=== PATIENT | female | born 1995 | race Caucasian/White ===

== ENCOUNTER 2017-04-08 11:05 | Emergency (ER) | payer OTHER ==
[2017-04-08 11:15] VITALS: BP 106/60; PULSE 90; TEMP 98.2; BMI 20.5
[2017-04-08] MEDS ORDERED: KETOROLAC TROMETHAMINE 60 MG/2 ML VIAL IM ONE (11:45)
[2017-04-08] MEDS ORDERED: KETOROLAC TROMETHAMINE 60 MG/2 ML VIAL ONE (11:47)
--- NOTE | 2017-04-08 12:39 | PDOC ---
History of Present Illness - General Chief Complaint: Back Pain Stated Complaint: LOWER BACK PAIN Time Seen by Provider: 04/08/17 11:31 History Source: Patient Exam Limitations: No Limitations - History of Present Illness Initial Comments: 04/08/17 12:34 22 yr female with c/o pain to the middle of her back left side for 3 days. denies fever or cough. pain is worse with movement and to touch. pt denies trauma no meds taken [employer]. Severity: mild Associated Symptoms: reports: denies symptoms Past History - Past Medical History Allergies/Adverse Reactions: Allergies Allergy/AdvReac Type Severity Reaction Status Date / Time No Known Allergies Allergy Verified 04/08/17 11:15 Home Medications: Ambulatory Orders Cyclobenzaprine HCl [Flexeril -] 10 mg PO TID PRN #12 tablet 04/08/17 Naproxen [Naprosyn -] 500 mg PO BID PRN #28 tablet 04/08/17 COPD: No Thyroid Disease: No - Suicide/Smoking/Psychosocial Hx Smoking History: Unknown if ever smoked Have you smoked in the past 12 months: No Information on smoking cessation initiated: No Hx Alcohol Use: No Drug/Substance Use Hx: No Substance Use Type: None Review of Systems - Review of Systems Able to Perform ROS?: Yes Is the patient limited Kazakh proficient: No Constitutional: No: Symptoms Reported HEENTM: No: Symptoms Reported Respiratory: No: Symptoms reported Cardiac (ROS): No: Symptoms Reported ABD/GI: No: Symptoms Reported : No: Symptoms Reported Musculoskeletal: Yes: See HPI *Physical Exam - Vital Signs Last Vital Signs Temp Pulse Resp BP Pulse Ox 98.2 F 90 18 106/60 100 04/08/17 11:12 04/08/17 11:12 04/08/17 11:12 04/08/17 11:12 04/08/17 11:12 - Physical Exam General Appearance: Yes: Nourished, Appropriately Dressed HEENT: positive: EOMI, MAJO Neck: positive: Supple. negative: Tender Respiratory/Chest: positive: Lungs Clear, Normal Breath Sounds. negative: Chest Tender Cardiovascular: positive: Regular Rhythm, Regular Rate Gastrointestinal/Abdominal: positive: Normal Bowel Sounds, Soft. negative: Tender Musculoskeletal: positive: Normal Inspection, Muscle Spasm. negative: CVA Tenderness, CVA Tenderness (R), CVA Tenderness (L), Decreased Range of Motion, Vertebral Tenderness (tender to left trapezius muscle , no rash no bony tenderness) Extremity: positive: Normal Capillary Refill, Normal Inspection, Normal Range of Motion. negative: Tender Integumentary: positive: Normal Color, Dry, Warm Neurologic: positive: appliance repairer II-XII NML intact, Fully Oriented, Alert, Normal Mood/ Affect, Normal Response, Motor Strength 08/13 ED Treatment Course - Medications Given in the ED: ED Medications Discontinued Medications Generic Name Dose Route Start Last Admin Trade Name Freq PRN Reason Stop Dose Admin Ketorolac Tromethamine 60 mg 04/08/17 11:45 04/08/17 11:50 Toradol Injection - IM 04/08/17 11:46 60 mg ONCE ONE Administration Medical Decision Making - Medical Decision Making 04/08/17 12:38 cc: muscle spasm, pain to trapezius muscle left back no CVA tenderness neg urine or bowel dyscomfort will give toradol no risk factors for PE no travel, no OCP, no surgery *DC/Admit/Observation/Transfer Diagnosis at time of Disposition: Muscle strain, Muscle spasm of back - Discharge Dispostion Disposition: HOME Condition at time of disposition: Good - Prescriptions Prescriptions: Cyclobenzaprine HCl [Flexeril -] 10 mg PO TID PRN #12 tablet PRN Reason: Muscle Spasms Naproxen [Naprosyn -] 500 mg PO BID PRN #28 tablet PRN Reason: Back Pain - Referrals - Patient Instructions Additional Instructions: take the medications as prescribed warm heating pad to the area of pain every 3 hrs for 20 minutes return to ER for any worsening symptoms or changes in condition no heavy lifting or bending until pain has improved celia los medicamentos segn lo prescrito [place] trmica caliente en el [place] dolor cada 3 horas angelita 20 minutos regresar a la sariah de emergencias por cualquier empeoramiento de los sntomas o cambios en la condicin sin levantar objetos pesados ni doblarse hasta que el dolor haya aidan - Post Discharge Activity
== END 2017-04-08 13:01 | disposition home or self-care (01) ==
LOC: JERFT 11:05
PROC: 3E0233Z Introduction of Anti-inflammatory into Muscle, Percutaneous Approach (ICD-10-PCS; principal; 2017-04-08)
DX: S29.012A Strain of muscle and tendon of back wall of thorax, initial encounter (principal); M62.830 Muscle spasm of back
CPT/HCPCS: 96372; 99281-25